=== PATIENT | female | born 1950 | race Caucasian/White ===

== ENCOUNTER → 2017-04-23 | Outpatient (CLI) | payer MEDICARE, OTHER ==
--- NOTE | 2017-04-23 16:22 | KCIC ---
Carotid doppler ultrasound History: Left arm paresthesia Multiple grayscale, color, and duplex spectral analysis waveform sonographic images were acquired of the carotid, subclavian, and vertebral arteries. Comparison: None Findings: RIGHT: PSV cm/sec EDV cm/sec Common carotid artery 79 11 Maximal internal carotid artery 112 26 External carotid artery 126 Vertebral artery 52 ICA/CCA ratio 1.43 LEFT: PSV cm/sec EDV cm/sec Common carotid artery 86 14 Maximum internal carotid artery 102 23 External carotid artery 113 Vertebral artery 49 ICA/CCA ratio 1.18 Velocities used to determine stenosis are known to correlate with NASCET angiographic criteria. There is antegrade flow in the bilateral vertebral arteries. No significant stenosis is demonstrated on grayscale or color images. There is scattered plaque of the common carotid arteries bilaterally, also of the carotid bulbs greater on the left and of the right internal carotid artery. Impression: 1. There is no evidence of a hemodynamically significant stenosis. There is scattered plaque bilaterally. Electronically signed by: Jose De Jesus Jefferson MD (04/23/2017 4:18 PM) [id number]
== END | disposition home or self-care (01) ==
LOC: KCIC US 15:15
PROVIDERS: ATTEND Internal Medicine
DX: I65.23 Occlusion and stenosis of bilateral carotid arteries (principal); R20.2 Paresthesia of skin
CPT/HCPCS: 93880